=== PATIENT | female | born 1945 | race Caucasian/White ===

== ENCOUNTER 2020-05-17 15:53 | Outpatient (CLI) | payer MEDICARE, MEDICAID, SELFPAY ==
--- NOTE | ~2020-05-17 | XR_ITS ---
EXAMINATION: XR wrist RT min 3V DATE: 05/17/2020 16:26 INDICATION: Pain in basal joint of right wrist. TECHNIQUE: 4 views of right wrist were obtained. COMPARISON: None. FINDINGS: Bone alignment is normal. There is an old healed fracture of distal radius with plate and s crews. There is an old avulsion fracture of ulnar styloid. Trapezium is small or absent. There is sev ere osteoarthritis of first and second carpometacarpal joints and moderate osteoarthritis of triscaph e joint. IMPRESSION: 1. Polyarticular osteoarthritis. Reviewed, dictated and finalized at location A.
== END 2020-05-17 15:54 | disposition home or self-care (01) ==
LOC: ANHIMG 16:05
PROVIDERS: PCP Family Medicine; Visit Provider Plastic Surgery
DX: M19.031 Primary osteoarthritis, right wrist (principal)
CPT/HCPCS: 73110